=== PATIENT | male | born 1985 | race Caucasian/White ===

== ENCOUNTER 2020-03-01 00:28 | Emergency (ER) | payer MEDICAID ==
[~2020-03-01] VITALS: Ht 185.4 cm; Wt 77.3 kg
[2020-03-01 00:43] VITALS: BP 129/84
[2020-03-01] MEDS ORDERED: proparacaine 0.5% ophthalmic drops 15ml EACHEYE ONE (00:50)
[2020-03-01] MEDS ORDERED: ciprofloxacin 0.3% 2.5ml ophthalmic solution EACHEYE ONE (03:35)
[2020-03-01] MEDS ORDERED: CIPR2.5D21 EACHEYE (03:36)
== END 2020-03-01 04:12 | disposition home or self-care (01) ==
LOC: ER 00:29
DX: H16.9 Unspecified keratitis (principal); H57.13 Ocular pain, bilateral; F17.200 Nicotine dependence, unspecified, uncomplicated; Z72.89 Other problems related to lifestyle; Z79.2 Long term (current) use of antibiotics
CPT/HCPCS: 99283